=== PATIENT | female | born 1970 | race Caucasian/White ===

== ENCOUNTER 2017-10-08 18:08 | Inpatient (IN) ==
[2017-10-08 18:49] LABS: BILIRUBIN,URINE NEGATIVE (NEGATIVE); BLOOD/HEMOGLOBIN,URINE NEGATIVE (NEGATIVE); GLUCOSE, URINE NEGATIVE (NEGATIVE); KETONES,URINE 1+ (NEGATIVE); LEUKOCYTE ESTERASE ,URINE 1+ (NEGATIVE); NITRITES,URINE NEGATIVE (NEGATIVE); PROTEIN,URINE NEGATIVE (NEGATIVE); UROBILINOGEN,URINE NORMAL (NORMAL)
[2017-10-08] MEDS ORDERED: TORADOL 60 MG VIAL IM ONE (18:54)
[2017-10-08] MEDS ORDERED: ZOFRAN INJ 4 MG VIAL IM ONE (18:55)
[2017-10-08 18:57] LABS: APPEARANCE,URINE CLEAR (CLEAR); BACTERIA,URINE NEGATIVE /HPF (NEGATIVE); COLOR,URINE YELLOW (YELLOW); RBC,URINE NONE SEEN /HPF (NONE SEEN); SQUAMOUS EPITHELIAL CELL,UR RARE /HPF (NEGATIVE)
[2017-10-08] MEDS ORDERED: TORADOL 60 MG VIAL ONE (19:03)
[2017-10-08] MEDS ORDERED: ZOFRAN INJ 4 MG VIAL ONE (19:03)
--- NOTE | 2017-10-08 19:06 | DR.FBACK ---
HPI Time Seen Time seen: 18:50 PCP Primary Care Physician: DR. BARRERA HPI Comment HPI Comment: PAIN WORSE TODAY. PAIN IS SHARP AND PATIENT IS NOT HOLDING DOWN HER MEDICATIONS. NO FEVER OR DYSURIA. PATIENT TOOK CONSTIPATION MED BUT THAT HAVE NOT HELP PAIN. Complaint Chief Complaint Doctor Comments: ABDOMINAL PAIN RADIATING TO THE BACK ASSOCIATED WITH NAUSEA AND VOMITING TIMES 3 DAYS. Chief Complaint:: PT C/O LOWER ABD PAIN AND ESPECIALLY TO THE RIGHT SIDE AND IT RADIATES TO THE BACK , PT C/O CONSTIPATION AND SHE HAD A BM 3 DAYS AGO AND THAT IS NORMAL,.,,BR Self Treatment fo Chief Complaint: EXLAX, 2 SUPP TODAY AND ONE LAST NIGHT AND PT DID NOT HAVE ANY RESULTS, BR Reviewed Nurses Notes Review: Yes Source History Provided: Patient Mode of Arrival Mode of Arrival: Ambulatory Timing Onset of Chief Complaint: 10/05/17 Duration Duration: Constant Duration: Days Location Back Pain Location: BACK, Flank and Lumbar Radiation To: Right and Left Quality Quality: Sharp Context Onset: Spontaneous Circumstance: Spontaneous History of: None Modifying Factors Worsened By: None Associated Signs and Symptoms Back Pain Symptoms: Nausea and Vomiting Numbness: None Weakness: None PMH PMH Past Medical History: No Past Surgical History: Yes Surgical History: Cholecystectomy Past Surgical History Comment: GAS BYPASS, HYS, DOUBLE MASECTOMY, PE Family History History of Family Medical Conditions: Yes Family Medical History Comment: LUNG CA, HEART, AND MELONOMA Social History Does patient currently use any type of tobacco product: No Have you used tobacco products in the last 12 months: No Type of Tobacco Use: None Does any household member use tobacco: No Alcohol Use: None Do you use any recreational Drugs:: No Lives With: Family Lives Where: Home infectious screening In the last 2 months have you had wt loss of >10#?: NO Have you had fever, night sweats or hemotysis?: No Have you traveled outside the country in the last 6 months?: No Isolation: Standard ROS Review of Systems Constitutional: Weakness and Fatigue; negative Chills and Fever Eyes: No Symptoms Reported ENTM: No Symptoms Reported Respiratoy: Short of Breath; negative Productive Cough, Non-Productive Cough, Wheezing and Hemoptysis Gastrointestinal/Abdominal: Abdominal Pain, Nausea and Vomiting Neurological: Weakness Musculoskeletal: No Symptoms Reported Integumentary: No Symptoms Reported Hematologic/Lymphatic: No Symptoms Reported Endocrine: No Symptoms Reported Psychiatric: No Symptoms Reported All Other Systems: Reviewed and Negative PE Vitals Vital Signs: Temp Pulse Resp BP Pulse Ox 10/08/17 18:16 98.2 F 50 L 20 194/91 100 General Limitations: No Limitations General Appearance: Alert and In No Apparent Distress Head Head Exam: Normal Inspection Eyes Eye exam: Normal Appearance, PERRL and EOMI; negative Scleral Icterus and Conjunctival Injection ENT ENT Exam: Normal Exam Chest Chest Inspection: Normal Inspection Respiratory Respiratory Exam: Normal Lung Sounds Bilat Respiratory Exam: Bilateral: Clear to Auscultation Cardiovascular Cardiovascular Exam: Regular Rate, Normal Rhythm and Normal Heart Sounds Abdominal Exam Abdominal Exam: Normal Bowel Sounds, Soft and Tenderness Abdominal Tenderness: Diffuse and Moderate Genitourinary External Exam: Female: Deferred : Speculum Exam (Female): Deferred : Bimanual Exam (female): Deferred Extremities Extremities Exam: Normal Inspection Back Back Exam: (R) CVA Tenderness and (L) CVA Tenderness Neurological Neurological Exam: Alert, Oriented X3 and CN II-XII Intact; negative Motor Sensory Deficit Psychiatric Psychiatric Exam: Normal Affect and Normal Mood Skin Skin Exam: Erythema MDM Additional Information Additional Information Obtained From: Family Differential Diagnosis Differential Diagnosis: Bowel Obstruction, Pancreatitis, Pyelonephritis, Strain and Urolithiasis COURSE Treatment Treatment: SEE ORDERS. Education/Counseling Education/Counseling: Patient, Family and Education Educated On: Diagnosis ROR Labs Reviewed Laboratory Results Reviewed?: Yes Result Diagrams: 10/08/17 19:13 10/08/17 19:13 Laboratory: WBC 10.7 X10^3/uL (3.6-10.0) H 10/08/17 19:13 RBC 4.66 X10^6/uL (3.5-5.4) 10/08/17 19:13 Hgb 14.7 g/dL (12.0-16.0) 10/08/17 19:13 Hct 43.5 % (36.0-47.0) 10/08/17 19:13 MCV 93.2 fL (80.0-100.0) 10/08/17 19:13 MCH 31.4 pg (27.0-34.0) 10/08/17 19:13 MCHC 33.7 g/dL (33.0-35.0) 10/08/17 19:13 RDW 21.1 % (11.6-16.5) H 10/08/17 19:13 Plt Count 150 X10^3/uL (150.0-450.0) 10/08/17 19:13 Plt Count Comment Adequate (ADEQUATE) 10/08/17 19:13 MPV 11.3 fL (7.4-11.0) H 10/08/17 19:13 Neut % (Auto) 81.5 % (42.0-75.0) H 10/08/17 19:13 Lymph % (Auto) 10.0 % (21.0-51.0) L 10/08/17 19:13 [place] % (Auto) 7.0 % (0.0-13.0) 10/08/17 19:13 Eos % (Auto) 1.0 % (0.9-2.9) 10/08/17 19:13 Baso % (Auto) 0.5 % (0.2-1.0) 10/08/17 19:13 Neut # (Auto) 8.8 x10^3/uL (2.2-4.8) H 10/08/17 19:13 Lymph # (Auto) 1.1 X10^3/uL (1.3-2.9) L 10/08/17 19:13 [place] # (Auto) 0.8 x10^3/uL (0.3-0.8) 10/08/17 19:13 Eos # (Auto) 0.1 x10^3/uL (0.0-0.2) 10/08/17 19:13 Baso # (Auto) 0.1 X10^3/uL (0.0-0.1) 10/08/17 19:13 Absolute Nucleated RBC 0.0 /100WBC 10/08/17 19:13 Plt Morphology Comment Normal (NORMAL) 10/08/17 19:13 RBC Morphology Abnormal (NORMAL) A 10/08/17 19:13 Anisocytosis 1+ A 10/08/17 19:13 Sodium 132 mmol/L (136-145) L 10/08/17 19:13 Corrected Sodium 134 mmol/L (136-145) L 10/08/17 19:13 Potassium 4.1 mmol/L (3.5-5.1) 10/08/17 19:13 Chloride 100 mmol/L (98-107) 10/08/17 19:13 Carbon Dioxide 22.5 mmol/L (21-32) 10/08/17 19:13 BUN 13 mg/dL (7-18) 10/08/17 19:13 Creatinine 0.72 mg/dL (0.55-1.02) 10/08/17 19:13 Est GFR (MDRD) Af Amer > 60 (>60) 10/08/17 19:13 Est GFR (MDRD) Non-Af > 60 (>60) 10/08/17 19:13 Glucose 176 mg/dL (65-99) H 10/08/17 19:13 Calcium 9.5 mg/dL (8.5-10.1) 10/08/17 19:13 Corrected Calcium TNP 10/08/17 19:13 Total Bilirubin 0.60 mg/dL (0.2-1.0) 10/08/17 19:13 AST 74 Units/L (15-37) H 10/08/17 19:13 ALT 90 Units/L (12-78) H 10/08/17 19:13 Alkaline Phosphatase 297 Units/L (46-116) H 10/08/17 19:13 Total Protein 8.3 g/dL (6.4-8.2) H 10/08/17 19:13 Albumin 3.4 g/dL (3.4-5.0) 10/08/17 19:13 Globulin 4.9 g/dL (2.5-4.5) H 10/08/17 19:13 Albumin/Globulin Ratio 0.7 Ratio (1.1-2.1) L 10/08/17 19:13 Amylase 153 Units/L (25-115) H 10/08/17 19:13 Lipase 1807 Units/L (73-393) H 10/08/17 19:13 Specimen Type Clean catch urine 10/08/17 18:36 Urine Color Yellow (YELLOW) 10/08/17 18:36 Urine Appearance Clear (CLEAR) 10/08/17 18:36 Urine pH 7.0 (5.0 - 8.0) 10/08/17 18:36 Ur Specific [place] 1.010 (1.000-1.030) 10/08/17 18:36 Urine Protein Negative (NEGATIVE) 10/08/17 18:36 Urine Glucose (UA) Negative (NEGATIVE) 10/08/17 18:36 Urine Ketones 1+ (NEGATIVE) 10/08/17 18:36 Urine Occult Blood Negative (NEGATIVE) 10/08/17 18:36 Urine Nitrite Negative (NEGATIVE) 10/08/17 18:36 Urine Bilirubin Negative (NEGATIVE) 10/08/17 18:36 Urine Urobilinogen Normal (NORMAL) 10/08/17 18:36 Ur Leukocyte Esterase 1+ (NEGATIVE) 10/08/17 18:36 Urine RBC None seen /HPF (NONE SEEN) 08 18:36 Urine WBC 0-2 /HPF (NONE SEEN) 08 18:36 Ur Squamous Epith Cells Rare /HPF (NEGATIVE) 10/08/17 18:36 Urine Bacteria Negative /HPF (NEGATIVE) 10/08/17 18:36 Ur Culture Indicated? No/not indicated 10/08/17 18:36 XRAY XRAY Interpreted by: Radiologist XRAY Findings: REPORT DISCUSS WITH PATIENT. Diagnosis Discharge Problem: Acute pancreatitis, Abdominal pain
[2017-10-08 19:30] LABS: BASOPHILS # (AUTO) 0.1 X10^3/uL (0.0-0.1); BASOPHILS % (AUTO) 0.5 % (0.2-1.0); EOSINOPHILS # (AUTO) 0.1 x10^3/uL (0.0-0.2); HEMATOCRIT 43.5 % (36.0-47.0); HEMOGLOBIN 14.7 g/dL (12.0-16.0); LYMPHOCYTES # (AUTO) 1.1 X10^3/uL (1.3-2.9); MEAN CORPUSCULAR HEMOGLOBIN 31.4 pg (27.0-34.0); MEAN CORPUSCULAR HGB CONC 33.7 g/dL (33.0-35.0); MEAN CORPUSCULAR VOLUME 93.2 fL (80.0-100.0); MEAN PLATELET VOLUME 11.3 fL (7.4-11.0); MONOCYTES # (AUTO) 0.8 x10^3/uL (0.3-0.8); NEUTROPHILS # (AUTO) 8.8 x10^3/uL (2.2-4.8); NEUTROPHILS % (AUTO) 81.5 % (42.0-75.0); PLATELET COUNT 150 X10^3/uL (150.0-450.0); RED BLOOD COUNT 4.66 X10^6/uL (3.5-5.4); RED CELL DISTRIBUTION WIDTH 21.1 % (11.6-16.5); WHITE BLOOD COUNT 10.7 X10^3/uL (3.6-10.0)
[2017-10-08 19:40] LABS: ANISOCYTOSIS 1+; PLATELET MORPHOLOGY COMMENT NORMAL (NORMAL)
[2017-10-08 19:50] LABS: ALANINE AMINOTRANSFERASE 90 Units/L (12-78); ALBUMIN 3.4 g/dL (3.4-5.0); ALKALINE PHOSPHATASE 297 Units/L (46-116); AMYLASE 153 Units/L (25-115); ASPARTATE AMINO TRANSFERASE 74 Units/L (15-37); BLOOD UREA NITROGEN 13 mg/dL (7-18); CALCIUM 9.5 mg/dL (8.5-10.1); CARBON DIOXIDE 22.5 mmol/L (21-32); CHLORIDE 100 mmol/L (98-107); COR NA(FOR HYPERGLY) 134 mmol/L (136-145); CREATININE 0.72 mg/dL (0.55-1.02); SODIUM 132 mmol/L (136-145); TOTAL PROTEIN 8.3 g/dL (6.4-8.2); eGFR NON BLACK RACES > 60 (>60)
[2017-10-08 19:51] LABS: LIPASE 1807 Units/L (73-393)
--- NOTE | 2017-10-08 19:54 | CT ---
HISTORY: Lower abdomen pain, more so on the right side radiating to the back. Study: CT abdomen and pelvis without IV or oral contrast Comparison: No priors Technique: Multiple axial images of the abdomen and pelvis were obtained from the lung bases to the pubic symphy sis without the administration of IV or oral contrast. Coronal and sagittal images are also reviewed . Dose reduction techniques utilized automatic exposure control. Findings: The visualized portions of the lung bases are unremarkable. The liver is enlarged measuring 22.8 cm i n length. There is diffuse fatty change present throughout the liver. The spleen, kidneys, and adren al glands are unremarkable in their CT appearance. The gallbladder is surgically absent. There is cruz dence of peripancreatic fat reticulation involving the entire pancreas, most compatible with pancreat itis. No evidence of pancreatic mass, pseudocyst or ductal ectasia is seen.. No significant mesenter ic lymphadenopathy or stranding can be observed. No free fluid or free air is seen within the abdome n. No bowel wall thickening or bowel dilatation is present. The appendix is normal. The colon is un remarkable. Specifically, there is no diverticulosis noted within the sigmoid colon. There is a 6.5 cm rectal fecal impaction. The uterus and ovaries are not identified and may have been surgically rem itzel. The urinary bladder is grossly unremarkable. The bony structures are grossly intact. IMPRESSION: Findings compatible with diffuse pancreatitis. No evidence of mass, ductal ectasia or pseudocyst is s een. Enlarged liver with diffuse fatty change. Surgically absent gallbladder, uterus and ovaries. Rectal fecal impaction. Reported By:
[2017-10-08] MEDS ORDERED: PEPCID 20 MG IV PREMIX* 20 MG/50 ML BAG IV ONE ×2 (20:05→21:16)
[2017-10-08] MEDS ORDERED: NS 1000 ML 1,000 ML IV SCH (21:00)
[2017-10-08] MEDS ORDERED: PEPCID 20 MG IV PREMIX* 20 MG/50 ML BAG IV PRN (22:40)
[2017-10-08] MEDS ORDERED: TYLENOL 325 MG TAB PO PRN (22:40)
[2017-10-08] MEDS: NS 1000 ML 1,000 ML IV SCH (22:43)
[2017-10-08] MEDS: ZOFRAN INJ 4 MG VIAL IVP PRN (23:00)
[2017-10-08] MEDS: MORPHINE SULFATE INJ 2 MG INJ IVP PRN (23:00)
[2017-10-08 23:55] VITALS: BMI 34.4
[2017-10-09] MEDS: MORPHINE SULFATE INJ 2 MG INJ IVP PRN ×2 (03:37→07:15)
[2017-10-09] MEDS: ZOFRAN INJ 4 MG VIAL IVP PRN ×3 (04:44→16:05)
[2017-10-09 06:12] LABS: BASOPHILS % (AUTO) 0.6 % (0.2-1.0); EOSINOPHILS # (AUTO) 0.2 x10^3/uL (0.0-0.2); EOSINOPHILS % (AUTO) 2.7 % (0.9-2.9); HEMATOCRIT 34.7 % (36.0-47.0); HEMOGLOBIN 11.6 g/dL (12.0-16.0); LYMPHOCYTES # (AUTO) 1.7 X10^3/uL (1.3-2.9); LYMPHOCYTES % (AUTO) 23.9 % (21.0-51.0); MEAN CORPUSCULAR HEMOGLOBIN 31.3 pg (27.0-34.0); MEAN CORPUSCULAR HGB CONC 33.5 g/dL (33.0-35.0); MEAN CORPUSCULAR VOLUME 93.5 fL (80.0-100.0); MEAN PLATELET VOLUME 11.9 fL (7.4-11.0); MONOCYTES # (AUTO) 0.5 x10^3/uL (0.3-0.8); MONOCYTES % (AUTO) 7.2 % (0.0-13.0); NEUTROPHILS # (AUTO) 4.7 x10^3/uL (2.2-4.8); NEUTROPHILS % (AUTO) 65.6 % (42.0-75.0); PLATELET COUNT 118 X10^3/uL (150.0-450.0); RED BLOOD COUNT 3.71 X10^6/uL (3.5-5.4); RED CELL DISTRIBUTION WIDTH 20.2 % (11.6-16.5); WHITE BLOOD COUNT 7.2 X10^3/uL (3.6-10.0)
[2017-10-09 06:30] LABS: ALANINE AMINOTRANSFERASE 64 Units/L (12-78); ALBUMIN 2.4 g/dL (3.4-5.0); ALKALINE PHOSPHATASE 210 Units/L (46-116); AMYLASE 106 Units/L (25-115); ASPARTATE AMINO TRANSFERASE 57 Units/L (15-37); BLOOD UREA NITROGEN 13 mg/dL (7-18); CALCIUM 8.2 mg/dL (8.5-10.1); CARBON DIOXIDE 23.8 mmol/L (21-32); CHLORIDE 107 mmol/L (98-107); COR CA(FOR HYPOALB) 9.5 mg/dL (8.5-10.1); COR NA(FOR HYPERGLY) 140 mmol/L (136-145); CREATININE 0.67 mg/dL (0.55-1.02); LIPASE 1323 Units/L (73-393); SODIUM 139 mmol/L (136-145); TOTAL PROTEIN 5.8 g/dL (6.4-8.2); eGFR NON BLACK RACES > 60 (>60)
[2017-10-09 07:05] LABS: PLATELET MORPHOLOGY COMMENT NORMAL (NORMAL)
[2017-10-09 07:06] LABS: ANISOCYTOSIS 1+
[2017-10-09] MEDS: NS 1000 ML 1,000 ML IV SCH ×3 (07:41→18:10)
[2017-10-09] MEDS ORDERED: PHENERGAN INJ 25 MG ONE (10:44)
[2017-10-09] MEDS: PHENERGAN INJ 25 MG IV PRN ×2 (10:45→21:30)
[2017-10-09] MEDS ORDERED: DILAUDID INJ IVP ONE (10:57)
[2017-10-09] MEDS ORDERED: DILAUDID INJ ONE (10:58)
[2017-10-09] MEDS ORDERED: DILAUDID INJ IVP PRN (12:52)
[2017-10-09] MEDS: DILAUDID INJ IVP PRN ×2 (15:00→19:10)
[2017-10-09] MEDS ORDERED: K-LYTE EFFERVESCENT PO PRN (17:12)
[2017-10-09] MEDS ORDERED: POTASSIUM CHL 60 MEQ/NS 0.45% 500 ML IV PRN (17:12)
[2017-10-09] MEDS ORDERED: K-RIDER 10 MEQ/NS 100 ML 10 MEQ/100 ML BAG IV PRN (17:12)
[2017-10-09] MEDS ORDERED: POTASSIUM CHL 40 MEQ/NS 0.45% 500 ML IV PRN (17:12)
[2017-10-09] MEDS ORDERED: POTASSIUM CHLORIDE LIQ 20 MEQ UDC PO PRN (17:12)
--- NOTE | 2017-10-09 18:04 | DR.H&P ---
H&P - History & Physical for Day of: H&P Date: 10/08/17 - Chief Complaint Chief Complaint: ABDOMINAL PAIN N/V - History of Present Illness History of Present Illness: 46 WF ER ADMISSION WITH CO ABDOMINAL PAIN N/V X 3-4 DAYS GRADUALLY WORSENED. PT HAS ELEVATED AMYLASE AND LIPASE, CT ABD PELVIS REVEALED ACUTE PACREATITIS. PT HAS PMH OF OA, ETOH ABUSE WITH REPORTED REHAB THERAPY APRIL 2017, DENIES RECENT USE OF ETOH. PT HAS HAD GASTRIC BYPASS AND GERD, LONG HX OF DEPRESSION. 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, Mastectomy, Weight Loss Surgery - Family History Family Medical History: Cancer - Social History Does patient currently use any type of tobacco product: No Have you used tobacco products in the last 12 months: No Type of Tobacco Use: None Does any household member use tobacco: No Alcohol Use: None Drug Use: None - Medications Home Medications: No Known Drug Allergies Allergy (Verified 10/08/17 18:14) CONTINUE taking the following medications doxepin 10 mg PO HS 10/09/17 [History] gabapentin 300 mg PO TID 10/09/17 [History] quetiapine 200 mg PO DAILY 10/09/17 [History] tizanidine 4 mg PO TID PRN 10/09/17 [History] topiramate 1 tab PO DAILY 10/09/17 [History] venlafaxine 1 cap PO DAILY 10/09/17 [History] - Review of Systems Constitutional: Weakness Eyes: No Symptoms Reported ENT: No Symptoms Reported Respiratory: No Symptoms Reported Cardiovascular: No Symptoms Reported Gastrointestinal: Nausea, Vomiting, Abdominal Pain Genitourinary: No Symptoms Reported Musculoskeletal: No Symptoms Reported Skin: No Symptoms Reported Neurological: No Symptoms Reported - Physical Exam Vital Signs: Temperature 97.6 F Pulse Rate [Radial] 102 Pulse Rate 50 Respiratory Rate 20 Blood Pressure [Left Calf] 161/68 Blood Pressure 194/91 O2 Sat by Pulse Oximetry 99 Oriented: Normal Eyes: Normal Ear: Normal Nose: Normal Throat: Normal Respiratory: RLL Diminished, LLL Diminished Cardiovascular: Normal. negative: Murmur : Normal Tenderness: Diffuse, RUQ, LUQ, Epigastric Skin: Normal Musculoskeletal: Normal Psychiatric: Anxiety Affect: Anxious Speech Pattern: Clear, Appropriate - Assessment/Plan (1) Acute pancreatitis Qualifiers: Pancreatitis type: unspecified pancreatitis type Acute pancreatitis complication: unspecified Qualified Code(s): K85.90 - Acute pancreatitis without necrosis or infection, unspecified Status: Acute Plan: ADMIT, NPO. GENTLE HYDRATION, PAIN AND NAUSEA CONTROL. VERIFY HOME MEDS. BP MONITORING, ADMISSION LABS AND REPEAT AM LABS. PPI THERAPY (2) Abdominal pain Qualifiers: Abdominal location: upper abdomen, unspecified Qualified Code(s): R10.10 - Upper abdominal pain, unspecified Status: Acute - Allergies Allergies/Adverse Reactions: Allergies Allergy/AdvReac Type Severity Reaction Status Date / Time No Known Drug Allergies Allergy Verified 10/08/17 18:14
[2017-10-09] MEDS: LOVENOX INJ 40 MG SYR SC SCH (18:08)
[2017-10-09] MEDS: TOPAMAX PO SCH (20:11)
[2017-10-09] MEDS ORDERED: SINEquan PO SCH (21:00)
[2017-10-09] MEDS: NEURONTIN CAP 300 MG PO SCH (21:50)
[2017-10-10] MEDS: NS 1000 ML 1,000 ML IV SCH ×5 (00:54→21:08)
[2017-10-10] MEDS: DILAUDID INJ IVP PRN ×6 (00:54→20:30)
[2017-10-10 04:49] LABS: BASOPHILS % (AUTO) 0.7 % (0.2-1.0); EOSINOPHILS # (AUTO) 0.3 x10^3/uL (0.0-0.2); EOSINOPHILS % (AUTO) 4.6 % (0.9-2.9); HEMATOCRIT 38.7 % (36.0-47.0); LYMPHOCYTES # (AUTO) 1.2 X10^3/uL (1.3-2.9); LYMPHOCYTES % (AUTO) 21.1 % (21.0-51.0); MEAN CORPUSCULAR HEMOGLOBIN 31.7 pg (27.0-34.0); MEAN CORPUSCULAR HGB CONC 33.6 g/dL (33.0-35.0); MEAN CORPUSCULAR VOLUME 94.4 fL (80.0-100.0); MEAN PLATELET VOLUME 11.2 fL (7.4-11.0); MONOCYTES # (AUTO) 0.5 x10^3/uL (0.3-0.8); MONOCYTES % (AUTO) 9.5 % (0.0-13.0); NEUTROPHILS # (AUTO) 3.5 x10^3/uL (2.2-4.8); NEUTROPHILS % (AUTO) 64.1 % (42.0-75.0); PLATELET COUNT 137 X10^3/uL (150.0-450.0); RED CELL DISTRIBUTION WIDTH 20.3 % (11.6-16.5); WHITE BLOOD COUNT 5.5 X10^3/uL (3.6-10.0)
[2017-10-10 04:59] LABS: ALANINE AMINOTRANSFERASE 100 Units/L (12-78); ALBUMIN 2.7 g/dL (3.4-5.0); ALKALINE PHOSPHATASE 262 Units/L (46-116); AMYLASE 78 Units/L (25-115); ASPARTATE AMINO TRANSFERASE 103 Units/L (15-37); BLOOD UREA NITROGEN 3 mg/dL (7-18); CALCIUM 8.6 mg/dL (8.5-10.1); CARBON DIOXIDE 19.7 mmol/L (21-32); CHLORIDE 106 mmol/L (98-107); COR CA(FOR HYPOALB) 9.6 mg/dL (8.5-10.1); CREATININE 0.64 mg/dL (0.55-1.02); LIPASE 698 Units/L (73-393); MAGNESIUM 2.1 mg/dL (1.7-2.9); SODIUM 138 mmol/L (136-145); TOTAL PROTEIN 6.8 g/dL (6.4-8.2); eGFR NON BLACK RACES > 60 (>60)
[2017-10-10] MEDS: NEURONTIN CAP 300 MG PO SCH ×3 (05:02→21:07)
[2017-10-10 05:10] LABS: ANISOCYTOSIS 1+; PLATELET MORPHOLOGY COMMENT NORMAL (NORMAL)
[2017-10-10] MEDS: COLACE CAP 100 MG PO SCH ×2 (08:00→21:07)
[2017-10-10] MEDS: ZOFRAN INJ 4 MG VIAL IVP PRN (08:00)
[2017-10-10] MEDS: MILK OF MAGNESIA PO SCH ×2 (08:00→21:07)
[2017-10-10] MEDS: LOVENOX INJ 40 MG SYR SC SCH (08:01)
[2017-10-10] MEDS: EFFEXOR XR 37.5 MG CAP PO SCH (08:01)
--- NOTE | 2017-10-10 13:26 | PCM.PROG ---
Progress Note - Progress Note for Day of Date of Exam: 10/09/17 - Subjective Subjective: 46 WF ER ADMISSION ON 10/08 WITH ACUTE PANCREATITIS. PT HAD REPORTED IMPROVING N/V. PT CONTINUES WITH ABDOMINAL PAIN AND MILDLY ANXIOUS. PT REPORTS "NOT HAVING REGULAR MEDICATION" CONFIRMED ANXIETY MEDICATION AND WILL RESTART TODAY. AMYLASE AND LIPASE SLIGHTLY IMPROVING, WILL ADD ICE CHIPS AND REPEAT AM LABS - Past Medical Family Social History Past Med/Fam/Surg Hx: No changes since H&P Allergies: Allergies No Known Drug Allergies Allergy (Verified 10/08/17 18:14) - Review of Systems ROS: No change since H&P - Vital Signs and I&O's Vital Signs: Temperature 97.9 F Pulse Rate [Radial] 80 Pulse Rate 50 Respiratory Rate 20 Blood Pressure [Right Calf] 161/82 Blood Pressure [Left Calf] 158/79 Blood Pressure 194/91 O2 Sat by Pulse Oximetry 96 Intake and Output: Intake & Output 10/08/17 10/09/17 10/10/17 10/11/17 11:59 11:59 11:59 11:59 Intake Total 250 / 250 1524 / 1524 Output Total 2 / 2 Balance 248 / 248 1524 / 1524 - Physical Exam Oriented: Normal Eyes: Normal Ear: Normal Nose: Normal Throat: Normal Respiratory: Normal Cardiovascular: Normal. negative: Murmur : Normal Tenderness: Diffuse, RUQ, LUQ, Epigastric Skin: Normal Musculoskeletal: Normal Psychiatric: Anxiety Affect: Anxious Speech Pattern: Clear, Appropriate - Laboratory and Diagnostics Result Diagrams: 10/10/17 04:15 10/10/17 04:15 Labs: Laboratory WBC 5.5 X10^3/uL (3.6-10.0) 10/10/17 04:15 RBC 4.10 X10^6/uL (3.5-5.4) 10/10/17 04:15 Hgb 13.0 g/dL (12.0-16.0) 10/10/17 04:15 Hct 38.7 % (36.0-47.0) 10/10/17 04:15 MCV 94.4 fL (80.0-100.0) 10/10/17 04:15 MCH 31.7 pg (27.0-34.0) 10/10/17 04:15 MCHC 33.6 g/dL (33.0-35.0) 10/10/17 04:15 RDW 20.3 % (11.6-16.5) H 10/10/17 04:15 Plt Count 137 X10^3/uL (150.0-450.0) L 10/10/17 04:15 Plt Count Comment Decreased (ADEQUATE) A 10/10/17 04:15 MPV 11.2 fL (7.4-11.0) H 10/10/17 04:15 Neut % (Auto) 64.1 % (42.0-75.0) 10/10/17 04:15 Lymph % (Auto) 21.1 % (21.0-51.0) 10/10/17 04:15 [place] % (Auto) 9.5 % (0.0-13.0) 10/10/17 04:15 Eos % (Auto) 4.6 % (0.9-2.9) H 10/10/17 04:15 Baso % (Auto) 0.7 % (0.2-1.0) 10/10/17 04:15 Neut # (Auto) 3.5 x10^3/uL (2.2-4.8) 10/10/17 04:15 Lymph # (Auto) 1.2 X10^3/uL (1.3-2.9) L 10/10/17 04:15 [place] # (Auto) 0.5 x10^3/uL (0.3-0.8) 10/10/17 04:15 Eos # (Auto) 0.3 x10^3/uL (0.0-0.2) H 10/10/17 04:15 Baso # (Auto) 0.0 X10^3/uL (0.0-0.1) 10/10/17 04:15 Absolute Nucleated RBC 0.1 /100WBC 10/10/17 04:15 Plt Morphology Comment Normal (NORMAL) 10/10/17 04:15 RBC Morphology Abnormal (NORMAL) A 10/10/17 04:15 Anisocytosis 1+ A 10/10/17 04:15 Sodium 138 mmol/L (136-145) 10/10/17 04:15 Corrected Sodium TNP 10/10/17 04:15 Potassium 3.9 mmol/L (3.5-5.1) 10/10/17 04:15 Chloride 106 mmol/L (98-107) 10/10/17 04:15 Carbon Dioxide 19.7 mmol/L (21-32) L 10/10/17 04:15 BUN 3 mg/dL (7-18) L 10/10/17 04:15 Creatinine 0.64 mg/dL (0.55-1.02) 10/10/17 04:15 Est GFR (MDRD) Af Amer > 60 (>60) 10/10/17 04:15 Est GFR (MDRD) Non-Af > 60 (>60) 10/10/17 04:15 Glucose 81 mg/dL (65-99) 10/10/17 04:15 Calcium 8.6 mg/dL (8.5-10.1) 10/10/17 04:15 Corrected Calcium 9.6 mg/dL (8.5-10.1) 10/10/17 04:15 Magnesium 2.1 mg/dL (1.7-2.9) 10/10/17 04:15 Total Bilirubin 0.30 mg/dL (0.2-1.0) 10/10/17 04:15 AST 103 Units/L (15-37) H 10/10/17 04:15 ALT 100 Units/L (12-78) H 10/10/17 04:15 Alkaline Phosphatase 262 Units/L (46-116) H 10/10/17 04:15 Total Protein 6.8 g/dL (6.4-8.2) 10/10/17 04:15 Albumin 2.7 g/dL (3.4-5.0) L 10/10/17 04:15 Globulin 4.1 g/dL (2.5-4.5) 10/10/17 04:15 Albumin/Globulin Ratio 0.7 Ratio (1.1-2.1) L 10/10/17 04:15 Amylase 78 Units/L (25-115) 10/10/17 04:15 Lipase 698 Units/L (73-393) H 10/10/17 04:15 Specimen Type Clean catch urine 10/08/17 18:36 Urine Color Yellow (YELLOW) 10/08/17 18:36 Urine Appearance Clear (CLEAR) 10/08/17 18:36 Urine pH 7.0 (5.0 - 8.0) 10/08/17 18:36 Ur Specific [place] 1.010 (1.000-1.030) 10/08/17 18:36 Urine Protein Negative (NEGATIVE) 10/08/17 18:36 Urine Glucose (UA) Negative (NEGATIVE) 08 18:36 Urine Ketones 1+ (NEGATIVE) 10/08/17 18:36 Urine Occult Blood Negative (NEGATIVE) 10/08/17 18:36 Urine Nitrite Negative (NEGATIVE) 10/08/17 18:36 Urine Bilirubin Negative (NEGATIVE) 10/08/17 18:36 Urine Urobilinogen Normal (NORMAL) 10/08/17 18:36 Ur Leukocyte Esterase 1+ (NEGATIVE) 10/08/17 18:36 Urine RBC None seen /HPF (NONE SEEN) 10/08/17 18:36 Urine WBC 0-2 /HPF (NONE SEEN) 08 18:36 Ur Squamous Epith Cells Rare /HPF (NEGATIVE) 10/08/17 18:36 Urine Bacteria Negative /HPF (NEGATIVE) 10/08/17 18:36 Ur Culture Indicated? No/not indicated 10/08/17 18:36 - Plan (1) Acute pancreatitis Status: Acute Qualifiers: Pancreatitis type: unspecified pancreatitis type Acute pancreatitis complication: unspecified Qualified Code(s): K85.90 - Acute pancreatitis without necrosis or infection, unspecified Plan: AMYLASE AND LIPASE SLIGHTLY IMPROVING, WILL ADD ICE CHIPS AND REPEAT AM LABS. GENTLE HYDRATION, PAIN AND NAUSEA CONTROL. BP MONITORING, REPEAT AM LABS. PPI THERAPY (2) Abdominal pain Status: Acute Qualifiers: Abdominal location: upper abdomen, unspecified Qualified Code(s): R10.10 - Upper abdominal pain, unspecified (3) Depression Status: Acute Plan: CONTINUE HOME MEDS, MONITOR
[2017-10-10] MEDS: PHENERGAN INJ 25 MG IV PRN (15:03)
[2017-10-10] MEDS ORDERED: PATIENT'S HOME MEDICATION PO SCH (21:00)
[2017-10-10] MEDS: TOPAMAX PO SCH (21:07)
[2017-10-11] MEDS: NS 1000 ML 1,000 ML IV SCH ×4 (02:34→21:54)
[2017-10-11] MEDS: DILAUDID INJ IVP PRN ×6 (02:39→22:30)
[2017-10-11] MEDS: ZOFRAN INJ 4 MG VIAL IVP PRN ×2 (02:39→22:30)
[2017-10-11 05:09] LABS: BASOPHILS % (AUTO) 0.8 % (0.2-1.0); EOSINOPHILS # (AUTO) 0.3 x10^3/uL (0.0-0.2); EOSINOPHILS % (AUTO) 5.6 % (0.9-2.9); HEMATOCRIT 38.1 % (36.0-47.0); HEMOGLOBIN 12.8 g/dL (12.0-16.0); LYMPHOCYTES % (AUTO) 22.1 % (21.0-51.0); MEAN CORPUSCULAR HEMOGLOBIN 31.6 pg (27.0-34.0); MEAN CORPUSCULAR HGB CONC 33.5 g/dL (33.0-35.0); MEAN CORPUSCULAR VOLUME 94.3 fL (80.0-100.0); MONOCYTES # (AUTO) 0.5 x10^3/uL (0.3-0.8); MONOCYTES % (AUTO) 10.1 % (0.0-13.0); NEUTROPHILS # (AUTO) 2.8 x10^3/uL (2.2-4.8); NEUTROPHILS % (AUTO) 61.4 % (42.0-75.0); PLATELET COUNT 138 X10^3/uL (150.0-450.0); RED BLOOD COUNT 4.04 X10^6/uL (3.5-5.4); RED CELL DISTRIBUTION WIDTH 19.7 % (11.6-16.5); WHITE BLOOD COUNT 4.6 X10^3/uL (3.6-10.0)
[2017-10-11] MEDS: NEURONTIN CAP 300 MG PO SCH ×3 (05:16→21:54)
[2017-10-11 05:20] LABS: ALANINE AMINOTRANSFERASE 131 Units/L (12-78); ALBUMIN 2.5 g/dL (3.4-5.0); ALKALINE PHOSPHATASE 291 Units/L (46-116); AMYLASE 44 Units/L (25-115); ASPARTATE AMINO TRANSFERASE 155 Units/L (15-37); BLOOD UREA NITROGEN 2 mg/dL (7-18); CALCIUM 8.4 mg/dL (8.5-10.1); CHLORIDE 107 mmol/L (98-107); COR CA(FOR HYPOALB) 9.6 mg/dL (8.5-10.1); COR NA(FOR HYPERGLY) 140 mmol/L (136-145); CREATININE 0.54 mg/dL (0.55-1.02); LIPASE 442 Units/L (73-393); SODIUM 139 mmol/L (136-145); TOTAL PROTEIN 6.4 g/dL (6.4-8.2); eGFR NON BLACK RACES > 60 (>60)
--- NOTE | 2017-10-11 13:46 | PCM.PROG ---
Progress Note - Progress Note for Day of Date of Exam: 10/11/17 - Subjective Subjective: 46 WF ER ADMISSION ON 10/08 WITH ACUTE PANCREATITIS. PT HAD REPORTED IMPROVING N/V. PT CONTINUES WITH ABDOMINAL PAIN NPO FOR LIVER US. DISCUSSED ADVANCING DIET TO FULL LIQUID TOLERATED. - Past Medical Family Social History Past Med/Fam/Surg Hx: No changes since H&P Allergies: Allergies No Known Drug Allergies Allergy (Verified 10/08/17 18:14) - Review of Systems ROS: No change since H&P - Vital Signs and I&O's Vital Signs: Temperature 97.9 F Pulse Rate [Radial] 74 Pulse Rate 50 Respiratory Rate 20 Blood Pressure [Right Calf] 170/84 Blood Pressure [Left Calf] 175/102 Blood Pressure 194/91 O2 Sat by Pulse Oximetry 98 Intake and Output: Intake & Output 10/09/17 10/10/17 10/11/17 10/12/17 11:59 11:59 11:59 11:59 Intake Total 250 / 250 1524 / 1524 2530 / 2530 Output Total 2 / 2 Balance 248 / 248 1524 / 1524 2530 / 2530 - Physical Exam Oriented: Normal Eyes: Normal Ear: Normal Nose: Normal Throat: Normal Respiratory: Normal Cardiovascular: Normal. negative: Murmur : Normal Tenderness: Diffuse, RUQ, LUQ, Epigastric Skin: Normal Musculoskeletal: Normal Psychiatric: Anxiety Affect: Anxious Speech Pattern: Clear, Appropriate - Laboratory and Diagnostics Result Diagrams: 10/11/17 04:27 10/11/17 04:27 Labs: Laboratory WBC 4.6 X10^3/uL (3.6-10.0) 10/11/17 04:27 RBC 4.04 X10^6/uL (3.5-5.4) 10/11/17 04:27 Hgb 12.8 g/dL (12.0-16.0) 10/11/17 04:27 Hct 38.1 % (36.0-47.0) 10/11/17 04:27 MCV 94.3 fL (80.0-100.0) 10/11/17 04:27 MCH 31.6 pg (27.0-34.0) 10/11/17 04:27 MCHC 33.5 g/dL (33.0-35.0) 10/11/17 04:27 RDW 19.7 % (11.6-16.5) H 10/11/17 04:27 Plt Count 138 X10^3/uL (150.0-450.0) L 10/11/17 04:27 Plt Count Comment Decreased (ADEQUATE) A 10/10/17 04: MPV 11.0 fL (7.4-11.0) 10/11/17 04:27 Neut % (Auto) 61.4 % (42.0-75.0) 10/11/17 04:27 Lymph % (Auto) 22.1 % (21.0-51.0) 10/11/17 04:27 [place] % (Auto) 10.1 % (0.0-13.0) 10/11/17 04:27 Eos % (Auto) 5.6 % (0.9-2.9) H 10/11/17 04:27 Baso % (Auto) 0.8 % (0.2-1.0) 10/11/17 04:27 Neut # (Auto) 2.8 x10^3/uL (2.2-4.8) 10/11/17 04:27 Lymph # (Auto) 1.0 X10^3/uL (1.3-2.9) L 10/11/17 04:27 [place] # (Auto) 0.5 x10^3/uL (0.3-0.8) 10/11/17 04:27 Eos # (Auto) 0.3 x10^3/uL (0.0-0.2) H 10/11/17 04:27 Baso # (Auto) 0.0 X10^3/uL (0.0-0.1) 10/11/17 04:27 Absolute Nucleated RBC 0.1 /100WBC 10/11/17 04:27 Plt Morphology Comment Normal (NORMAL) 10/10/17 04: RBC Morphology Abnormal (NORMAL) A 10/10/17 04: Anisocytosis 1+ A 10/10/17 04:15 Sodium 139 mmol/L (136-145) 10/11/17 04:27 Corrected Sodium 140 mmol/L (136-145) 10/11/17 04:27 Potassium 3.9 mmol/L (3.5-5.1) 10/11/17 04:27 Chloride 107 mmol/L (98-107) 10/11/17 04:27 Carbon Dioxide 27.0 mmol/L (21-32) 10/11/17 04:27 BUN 2 mg/dL (7-18) L 10/11/17 04:27 Creatinine 0.54 mg/dL (0.55-1.02) L 10/11/17 04:27 Est GFR (MDRD) Af Amer > 60 (>60) 10/11/17 04:27 Est GFR (MDRD) Non-Af > 60 (>60) 10/11/17 04:27 Glucose 129 mg/dL (65-99) H 10/11/17 04:27 Calcium 8.4 mg/dL (8.5-10.1) L 10/11/17 04:27 Corrected Calcium 9.6 mg/dL (8.5-10.1) 10/11/17 04:27 Magnesium 2.1 mg/dL (1.7-2.9) 10/10/17 04:15 Total Bilirubin 0.20 mg/dL (0.2-1.0) 10/11/17 04:27 AST 155 Units/L (15-37) H 10/11/17 04:27 ALT 131 Units/L (12-78) H 10/11/17 04:27 Alkaline Phosphatase 291 Units/L (46-116) H 10/11/17 04:27 Total Protein 6.4 g/dL (6.4-8.2) 10/11/17 04:27 Albumin 2.5 g/dL (3.4-5.0) L 10/11/17 04:27 Globulin 3.9 g/dL (2.5-4.5) 10/11/17 04:27 Albumin/Globulin Ratio 0.6 Ratio (1.1-2.1) L 10/11/17 04:27 Amylase 44 Units/L (25-115) 10/11/17 04:27 Lipase 442 Units/L (73-393) H 10/11/17 04:27 Specimen Type Clean catch urine 10/08/17 18:36 Urine Color Yellow (YELLOW) 10/08/17 18:36 Urine Appearance Clear (CLEAR) 10/08/17 18:36 Urine pH 7.0 (5.0 - 8.0) 10/08/17 18:36 Ur Specific [place] 1.010 (1.000-1.030) 10/08/17 18:36 Urine Protein Negative (NEGATIVE) 10/08/17 18:36 Urine Glucose (UA) Negative (NEGATIVE) 08 18:36 Urine Ketones 1+ (NEGATIVE) 10/08/17 18:36 Urine Occult Blood Negative (NEGATIVE) 10/08/17 18:36 Urine Nitrite Negative (NEGATIVE) 10/08/17 18:36 Urine Bilirubin Negative (NEGATIVE) 10/08/17 18:36 Urine Urobilinogen Normal (NORMAL) 10/08/17 18:36 Ur Leukocyte Esterase 1+ (NEGATIVE) 10/08/17 18:36 Urine RBC None seen /HPF (NONE SEEN) 10/08/17 18:36 Urine WBC 0-2 /HPF (NONE SEEN) 08 18:36 Ur Squamous Epith Cells Rare /HPF (NEGATIVE) 10/08/17 18:36 Urine Bacteria Negative /HPF (NEGATIVE) 10/08/17 18:36 Ur Culture Indicated? No/not indicated 10/08/17 18:36 - Plan (1) Acute pancreatitis Status: Acute Qualifiers: Pancreatitis type: unspecified pancreatitis type Acute pancreatitis complication: unspecified Qualified Code(s): K85.90 - Acute pancreatitis without necrosis or infection, unspecified Plan: AMYLASE AND LIPASE SLIGHTLY IMPROVING, NPO FOR LIVER US. REPEAT AM LABS. GENTLE HYDRATION, PAIN AND NAUSEA CONTROL. BP MONITORING, REPEAT AM LABS. PPI THERAPY (2) Abdominal pain Status: Acute Qualifiers: Abdominal location: upper abdomen, unspecified Qualified Code(s): R10.10 - Upper abdominal pain, unspecified (3) Depression Status: Acute Plan: CONTINUE HOME MEDS, MONITOR
[2017-10-11] MEDS: COLACE CAP 100 MG PO SCH ×2 (14:39→21:54)
[2017-10-11] MEDS: LOVENOX INJ 40 MG SYR SC SCH (14:40)
[2017-10-11] MEDS: EFFEXOR XR 37.5 MG CAP PO SCH (14:40)
[2017-10-11] MEDS: MILK OF MAGNESIA PO SCH ×2 (14:42→21:54)
[2017-10-11] MEDS: TOPAMAX PO SCH (21:54)
[2017-10-12] MEDS: NS 1000 ML 1,000 ML IV SCH ×5 (00:42→16:07)
[2017-10-12] MEDS: DILAUDID INJ IVP PRN ×4 (04:22→21:38)
[2017-10-12] MEDS: NEURONTIN CAP 300 MG PO SCH ×3 (05:01→21:38)
[2017-10-12 05:13] LABS: BASOPHILS % (AUTO) 0.8 % (0.2-1.0); EOSINOPHILS # (AUTO) 0.3 x10^3/uL (0.0-0.2); EOSINOPHILS % (AUTO) 5.1 % (0.9-2.9); HEMATOCRIT 39.5 % (36.0-47.0); HEMOGLOBIN 13.2 g/dL (12.0-16.0); LYMPHOCYTES # (AUTO) 2.4 X10^3/uL (1.3-2.9); LYMPHOCYTES % (AUTO) 41.6 % (21.0-51.0); MEAN CORPUSCULAR HEMOGLOBIN 31.5 pg (27.0-34.0); MEAN CORPUSCULAR HGB CONC 33.4 g/dL (33.0-35.0); MEAN CORPUSCULAR VOLUME 94.1 fL (80.0-100.0); MEAN PLATELET VOLUME 10.6 fL (7.4-11.0); MONOCYTES # (AUTO) 0.5 x10^3/uL (0.3-0.8); MONOCYTES % (AUTO) 8.1 % (0.0-13.0); NEUTROPHILS # (AUTO) 2.6 x10^3/uL (2.2-4.8); NEUTROPHILS % (AUTO) 44.4 % (42.0-75.0); PLATELET COUNT 148 X10^3/uL (150.0-450.0); RED CELL DISTRIBUTION WIDTH 21.3 % (11.6-16.5); WHITE BLOOD COUNT 5.8 X10^3/uL (3.6-10.0)
[2017-10-12 05:32] LABS: ALANINE AMINOTRANSFERASE 115 Units/L (12-78); ALBUMIN 2.5 g/dL (3.4-5.0); ALKALINE PHOSPHATASE 258 Units/L (46-116); AMYLASE 40 Units/L (25-115); ASPARTATE AMINO TRANSFERASE 105 Units/L (15-37); BLOOD UREA NITROGEN 2 mg/dL (7-18); CALCIUM 8.4 mg/dL (8.5-10.1); CARBON DIOXIDE 29.6 mmol/L (21-32); CHLORIDE 109 mmol/L (98-107); COR CA(FOR HYPOALB) 9.6 mg/dL (8.5-10.1); COR NA(FOR HYPERGLY) 144 mmol/L (136-145); CREATININE 0.63 mg/dL (0.55-1.02); LIPASE 564 Units/L (73-393); SODIUM 143 mmol/L (136-145); TOTAL PROTEIN 6.4 g/dL (6.4-8.2); eGFR NON BLACK RACES > 60 (>60)
[2017-10-12 05:46] LABS: ANISOCYTOSIS 1+; PLATELET MORPHOLOGY COMMENT NORMAL (NORMAL)
[2017-10-12] MEDS: MILK OF MAGNESIA PO SCH ×2 (08:43→21:38)
[2017-10-12] MEDS: COLACE CAP 100 MG PO SCH ×2 (08:43→20:01)
[2017-10-12] MEDS: EFFEXOR XR 37.5 MG CAP PO SCH (08:44)
[2017-10-12] MEDS: LOVENOX INJ 40 MG SYR SC SCH (08:44)
[2017-10-12] MEDS ORDERED: DULCOLAX SUPPOSITORY 10 MG RECTAL ONE (10:20)
--- NOTE | 2017-10-12 11:26 | RAD ---
HISTORY: Abdominal pain Study: KUB Comparison: CT scan of the abdomen pelvis done 10/08/2017. Findings: There is mild increase in small bowel gas in the mid epigastric region. This may be seen in patients with pancreatitis. No evidence of bowel obstruction is seen . No opaque stone is seen. Osseous struct ures are intact. IMPRESSION: Mild small bowel ileus. This may be seen in patients with pancreatitis. No evidence of bowel obstruction is seen. Reported By:
[2017-10-12] MEDS: ZANAFLEX PO PRN (18:07)
[2017-10-12] MEDS: TOPAMAX PO SCH (20:02)
[2017-10-13] MEDS: NS 1000 ML 1,000 ML IV SCH ×3 (02:07→08:34)
[2017-10-13] MEDS: ZANAFLEX PO PRN (03:59)
[2017-10-13] MEDS: NEURONTIN CAP 300 MG PO SCH ×2 (05:03→13:22)
[2017-10-13 05:38] LABS: EOSINOPHILS # (AUTO) 0.3 x10^3/uL (0.0-0.2); EOSINOPHILS % (AUTO) 6.3 % (0.9-2.9); LYMPHOCYTES # (AUTO) 1.9 X10^3/uL (1.3-2.9); LYMPHOCYTES % (AUTO) 40.2 % (21.0-51.0); MEAN CORPUSCULAR HEMOGLOBIN 31.4 pg (27.0-34.0); MEAN CORPUSCULAR HGB CONC 33.3 g/dL (33.0-35.0); MEAN CORPUSCULAR VOLUME 94.5 fL (80.0-100.0); MEAN PLATELET VOLUME 11.3 fL (7.4-11.0); MONOCYTES # (AUTO) 0.4 x10^3/uL (0.3-0.8); MONOCYTES % (AUTO) 8.9 % (0.0-13.0); NEUTROPHILS # (AUTO) 2.1 x10^3/uL (2.2-4.8); NEUTROPHILS % (AUTO) 43.6 % (42.0-75.0); PLATELET COUNT 142 X10^3/uL (150.0-450.0); RED BLOOD COUNT 4.13 X10^6/uL (3.5-5.4); RED CELL DISTRIBUTION WIDTH 20.4 % (11.6-16.5); WHITE BLOOD COUNT 4.7 X10^3/uL (3.6-10.0)
[2017-10-13] MEDS: DILAUDID INJ IVP PRN (05:46)
[2017-10-13 05:52] LABS: ALANINE AMINOTRANSFERASE 93 Units/L (12-78); ALBUMIN 2.4 g/dL (3.4-5.0); ALKALINE PHOSPHATASE 227 Units/L (46-116); AMYLASE 30 Units/L (25-115); ASPARTATE AMINO TRANSFERASE 60 Units/L (15-37); BLOOD UREA NITROGEN 2 mg/dL (7-18); CALCIUM 8.4 mg/dL (8.5-10.1); CARBON DIOXIDE 26.8 mmol/L (21-32); CHLORIDE 110 mmol/L (98-107); COR CA(FOR HYPOALB) 9.7 mg/dL (8.5-10.1); COR NA(FOR HYPERGLY) 141 mmol/L (136-145); CREATININE 0.69 mg/dL (0.55-1.02); LIPASE 384 Units/L (73-393); SODIUM 141 mmol/L (136-145); eGFR NON BLACK RACES > 60 (>60)
[2017-10-13 06:03] LABS: ANISOCYTOSIS 1+; PLATELET MORPHOLOGY COMMENT NORMAL (NORMAL)
[2017-10-13] MEDS: EFFEXOR XR 37.5 MG CAP PO SCH (08:33)
[2017-10-13] MEDS: LOVENOX INJ 40 MG SYR SC SCH (08:33)
[2017-10-13] MEDS: COLACE CAP 100 MG PO SCH (08:33)
[2017-10-13] MEDS: MILK OF MAGNESIA PO SCH (08:34)
[2017-10-13 12:49] VITALS: BP 140/77
--- NOTE | 2017-11-05 17:20 | PCM.DCPLAN ---
Discharge Summary - Admission Date Date of Admission: 10/08/17 - Discharge Date Discharge Date: 10/13/17 - Admission Diagnoses (1) Abdominal pain Status: Acute (2) Acute pancreatitis Status: Acute (3) Depression Status: Acute - Discharge Diagnoses Discharge Diagnosis: SAME ADMISSION DIAGNOSIS - Discharge Medications Discharge Medications: Home Medication List doxepin 10 mg PO HS 10/09/17 [History] gabapentin 300 mg PO TID 10/09/17 [History] quetiapine 200 mg PO DAILY 10/09/17 [History] tizanidine 4 mg PO TID PRN 10/09/17 [History] topiramate 1 tab PO DAILY 10/09/17 [History] venlafaxine 1 cap PO DAILY 10/09/17 [History] Prescriptions: - Hospital Course Vital Signs: Temperature 97.8 F Pulse Rate [Radial] 61 Pulse Rate 50 Respiratory Rate 18 Blood Pressure [Left Arm] 140/77 Blood Pressure [Right Calf] 132/51 Blood Pressure [Left Calf] 175/90 Blood Pressure 194/91 O2 Sat by Pulse Oximetry 100 Latest Lab Results: Laboratory Last Values WBC 4.7 X10^3/uL (3.6-10.0) 10/13/17 04:00 RBC 4.13 X10^6/uL (3.5-5.4) 10/13/17 04:00 Hgb 13.0 g/dL (12.0-16.0) 10/13/17 04:00 Hct 39.0 % (36.0-47.0) 10/13/17 04:00 MCV 94.5 fL (80.0-100.0) 10/13/17 04:00 MCH 31.4 pg (27.0-34.0) 10/13/17 04:00 MCHC 33.3 g/dL (33.0-35.0) 10/13/17 04:00 RDW 20.4 % (11.6-16.5) H 10/13/17 04:00 Plt Count 142 X10^3/uL (150.0-450.0) L 10/13/17 04:00 Plt Count Comment Adequate (ADEQUATE) 10/13/17 04:00 MPV 11.3 fL (7.4-11.0) H 10/13/17 04:00 Neut % (Auto) 43.6 % (42.0-75.0) 10/13/17 04:00 Lymph % (Auto) 40.2 % (21.0-51.0) 10/13/17 04:00 [place] % (Auto) 8.9 % (0.0-13.0) 10/13/17 04:00 Eos % (Auto) 6.3 % (0.9-2.9) H 10/13/17 04:00 Baso % (Auto) 1.0 % (0.2-1.0) 10/13/17 04:00 Neut # (Auto) 2.1 x10^3/uL (2.2-4.8) L 10/13/17 04:00 Lymph # (Auto) 1.9 X10^3/uL (1.3-2.9) 10/13/17 04:00 [place] # (Auto) 0.4 x10^3/uL (0.3-0.8) 10/13/17 04:00 Eos # (Auto) 0.3 x10^3/uL (0.0-0.2) H 10/13/17 04:00 Baso # (Auto) 0.0 X10^3/uL (0.0-0.1) 10/13/17 04:00 Absolute Nucleated RBC 0.1 /100WBC 10/13/17 04:00 Plt Morphology Comment Normal (NORMAL) 10/13/17 04:00 RBC Morphology Abnormal (NORMAL) A 10/13/17 04:00 Anisocytosis 1+ A 10/13/17 04:00 Sodium 141 mmol/L (136-145) 10/13/17 04:00 Corrected Sodium 141 mmol/L (136-145) 10/13/17 04:00 Potassium 4.0 mmol/L (3.5-5.1) 10/13/17 04:00 Chloride 110 mmol/L (98-107) H 10/13/17 04:00 Carbon Dioxide 26.8 mmol/L (21-32) 10/13/17 04:00 BUN 2 mg/dL (7-18) L 10/13/17 04:00 Creatinine 0.69 mg/dL (0.55-1.02) 10/13/17 04:00 Est GFR (MDRD) Af Amer > 60 (>60) 10/13/17 04:00 Est GFR (MDRD) Non-Af > 60 (>60) 10/13/17 04:00 Glucose 111 mg/dL (65-99) H 10/13/17 04:00 Calcium 8.4 mg/dL (8.5-10.1) L 10/13/17 04:00 Corrected Calcium 9.7 mg/dL (8.5-10.1) 10/13/17 04:00 Magnesium 2.1 mg/dL (1.7-2.9) 10/10/17 04:15 Total Bilirubin 0.20 mg/dL (0.2-1.0) 10/13/17 04:00 AST 60 Units/L (15-37) H 10/13/17 04:00 ALT 93 Units/L (12-78) H 10/13/17 04:00 Alkaline Phosphatase 227 Units/L (46-116) H 10/13/17 04:00 Total Protein 6.0 g/dL (6.4-8.2) L 10/13/17 04:00 Albumin 2.4 g/dL (3.4-5.0) L 10/13/17 04:00 Globulin 3.6 g/dL (2.5-4.5) 10/13/17 04:00 Albumin/Globulin Ratio 0.7 Ratio (1.1-2.1) L 10/13/17 04:00 Amylase 30 Units/L (25-115) 10/13/17 04:00 Lipase 384 Units/L (73-393) 10/13/17 04:00 Specimen Type Clean catch urine 10/08/17 18:36 Urine Color Yellow (YELLOW) 10/08/17 18:36 Urine Appearance Clear (CLEAR) 10/08/17 18:36 Urine pH 7.0 (5.0 - 8.0) 10/08/17 18:36 Ur Specific [place] 1.010 (1.000-1.030) 10/08/17 18:36 Urine Protein Negative (NEGATIVE) 10/08/17 18:36 Urine Glucose (UA) Negative (NEGATIVE) 10/08/17 18:36 Urine Ketones 1+ (NEGATIVE) 10/08/17 18:36 Urine Occult Blood Negative (NEGATIVE) 10/08/17 18:36 Urine Nitrite Negative (NEGATIVE) 10/08/17 18:36 Urine Bilirubin Negative (NEGATIVE) 10/08/17 18:36 Urine Urobilinogen Normal (NORMAL) 10/08/17 18:36 Ur Leukocyte Esterase 1+ (NEGATIVE) 10/08/17 18:36 Urine RBC None seen /HPF (NONE SEEN) 08 18:36 Urine WBC 0-2 /HPF (NONE SEEN) 08 18:36 Ur Squamous Epith Cells Rare /HPF (NEGATIVE) 10/08/17 18:36 Urine Bacteria Negative /HPF (NEGATIVE) 08 18:36 Ur Culture Indicated? No/not indicated 10/08/17 18:36 Hospital Course: 46 [facility] ER ADMISSION WITH CO ABDOMINAL PAIN N/V X 3-4 DAYS GRADUALLY WORSENED. PT HAS ELEVATED AMYLASE AND LIPASE, CT ABD PELVIS REVEALED ACUTE PACREATITIS. PT HAS PMH OF OA, ETOH ABUSE WITH REPORTED REHAB THERAPY APRIL 2017, DENIES RECENT USE OF ETOH. PT HAS HAD GASTRIC BYPASS AND GERD, LONG HX OF DEPRESSION. PT ADMITTED FOR TREATMENT OF ACUTE ILLNESS. AMYLASE AND LIPASE WERE MONITORED. PATIENT WAS KEPT ON LIMITED DIET. LABS AND PAIN IMPROVED AND WAS DISCHARGED HOME. - Discharge Plan Disposition: 01 HOME, SELF-CARE Condition: Stable - Follow ups/Referrals Follow ups/Referrals: FROYLAN PURVIS [REFERRING] - 10/24/17 3:45 pm YANELI BARRERA [Primary Care Provider] - 10/20/17 1:00 pm - Instructions Instructions: Acute Pancreatitis, [id number], Gallbladder Eating Plan Additional Instructions: Low fat diet Forms: Patient Portal
== END 2017-10-13 14:07 | disposition home or self-care (01) | DRG 440 ==
LOC: ER 18:10 → MED/SURG 22:04
PROVIDERS: ADMIT Internal Medicine; ATTEND Internal Medicine
DX: R94.5 Abnormal results of liver function studies; R10.10 Upper abdominal pain, unspecified; R10.84 Generalized abdominal pain; K85.80 Other acute pancreatitis without necrosis or infection; K21.9 Gastro-esophageal reflux disease without esophagitis; R11.2 Nausea with vomiting, unspecified; F32.89 Other specified depressive episodes
CPT/HCPCS: 36415; 74000; 74018; 74176; 76705; 80053; 81001; 82150; 83690; 83735; 85025; 96365; 96372; 96374; 99283; 99284; 99285; A4222; S0028; J1170; J1650; J1885; J2270; J2405; J2550; J3480; J7030